=== PATIENT | female | born 1990 | race Two or more races ===

== ENCOUNTER → 2017-01-02 | Outpatient (REF) | payer OTHER ==
[~2017-01-02] MED LIST: MULTTAB20 PO
== END ==
LOC: M LAB REF 16:46
PROVIDERS: ATTEND Obstetrics & Gynecology
DX: O36.80X0 Pregnancy with inconclusive fetal viability, not applicable or unspecified (principal); Z3A.00 Weeks of gestation of pregnancy not specified

== ENCOUNTER → 2017-01-04 | Outpatient (REF) | payer OTHER ==
[2017-01-04 13:52] LABS: MEAN CORPUSCULAR HEMOGLOBIN 19.4 pg (27.0-33.0); MEAN CORPUSCULAR HGB CONC 29.7 g/dl (32.0-36.5); MEAN CORPUSCULAR VOLUME 65.4 fl (80.0-96.0); RED CELL DISTRIBUTION WIDTH 16.1 % (11.5-14.5); WHITE BLOOD COUNT 9.8 K/mm3 (4.0-10.0)
[2017-01-04 14:11] LABS: HCG, SERUM QUANTITATIVE 3087 MIU/ML
== END ==
LOC: M LAB REF 12:54
PROVIDERS: ATTEND Advanced Practice Midwife
DX: O36.80X0 Pregnancy with inconclusive fetal viability, not applicable or unspecified (principal); Z3A.00 Weeks of gestation of pregnancy not specified

== ENCOUNTER → 2017-01-09 | Outpatient (REF) | payer OTHER | LOC: M LAB REF 13:26 | PROVIDERS: ATTEND Advanced Practice Midwife | DX: Z32.01 Encounter for pregnancy test, result positive (principal) ==

== ENCOUNTER 2017-01-24 16:01 | Emergency (ER) | payer OTHER ==
[~2017-01-24] VITALS: Ht 149.9 cm; Wt 65.0 kg
[2017-01-24] MEDS ORDERED: MULTTAB20 PO (16:14)
[2017-01-24] MEDS ORDERED: NS 1,000 ML IV SCH (16:27)
[2017-01-24 16:47] LABS: BASO # 0.1 10^3/uL (0.0-0.2); BASO % 0.4 % (0.0-1.0); EOS # 0.6 10^3/uL (0.0-0.50); EOS % 3.9 % (0.0-3.0); IMMATURE GRANULOCYTE % 0.8 % (0-0); LYMPH # 2.2 10^3/uL (1.5-6.5); LYMPH % 14.2 % (24.0-44.0); MEAN CORPUSCULAR HEMOGLOBIN 19.6 pg (27.0-33.0); MEAN CORPUSCULAR HGB CONC 31.4 g/dl (32.0-36.5); MONO % 6.6 % (0.0-5.0); NEUTROPHILS # 11.3 10^3/uL (1.8-7.7); NEUTROPHILS % 74.1 % (36.0-66.0); PLATELET COUNT, AUTOMATED 360 10^3/uL (150-450); RED CELL DISTRIBUTION WIDTH 17.7 % (11.5-14.5); WHITE BLOOD COUNT 15.2 10^3/uL (4.0-10.0)
[2017-01-24 16:52] LABS: ADD MORPHOLOGY? YES; MEAN CORPUSCULAR VOLUME 62.3 fl (80.0-96.0)
[2017-01-24 17:20] LABS: HCG, SERUM QUANTITATIVE 2020 MIU/ML
[2017-01-24 17:25] LABS: ANISOCYTOSIS 2+; MICROCYTOSIS 2+
--- NOTE | 2017-01-24 17:51 | REP ---
PELVIC ULTRASOUND: Real-time sonographic evaluation of the pelvis performed. The uterus measures 7.4 x 3.9 x 5.6 cm. No sac is seen in the endometrial canal. Endometrial thickness is approximately 8 mm. The right ovary measures 6.2 x 4.6 x 4.6 cm. There is a complex right ovarian cyst 3.8 x 3.9 x 3.9 cm. Left ovary measures 3.0 x 2.9 x 2.9 and contains a complex cystic structure, 1.8 x 1.3 x 2.3 cm. There is no other evidence of adnexal mass or free fluid. There is no evidence of ovarian torsion with blood seen in each ovary with duplex Doppler evaluation, RI of the right ovary 0.53 and left ovary 0.60. The patient declined endovaginal ultrasound. IMPRESSION: No sac in the uterus. Complex cyst right ovary 3.9 cm in diameter. No other evidence of adnexal mass or free fluid. No evidence of ovarian torsion. I cannot exclude ectopic . Signed by Fabio Santiago MD 01/24/2017 07:17 P
[2017-01-24 18:45] LABS: ALBUMIN/GLOBULIN RATIO 1.08 (1.00-1.93); ALKALINE PHOSPHATASE 75 U/L (45-117); ALT/SGPT 34 U/L (12-78); ANION GAP 7 MEQ/L (8-16); AST/SGOT 21 U/L (15-37); BILIRUBIN,TOTAL 1.1 MG/DL (0.2-1.0); BLOOD UREA NITROGEN 11 MG/DL (7-18); CALCIUM LEVEL 8.9 MG/DL (8.5-10.1); CARBON DIOXIDE LEVEL 25 MEQ/L (21-32); CHLORIDE LEVEL 106 MEQ/L (98-107); CREATININE FOR GFR 0.64 MG/DL (0.55-1.02); GLOMERULAR FILTRATION RATE > 60.0 (>60); GLUCOSE, FASTING 81 MG/DL (70-105); POTASSIUM SERUM 3.6 MEQ/L (3.5-5.1); SODIUM LEVEL 138 MEQ/L (136-145); TOTAL PROTEIN 7.7 GM/DL (6.4-8.2)
--- NOTE | 2017-01-24 19:00 | REPUSA ---
CLINICAL HISTORY: Rule out ectopic. TECHNIQUE: Realtime sonographic images were obtained in multiple projections. COMMENTS: Limited study due to patient toleration and had to end exam early. No IUP seen and no obvious masses. Cannot rule out ectopic . The uterus measures 8.1 x 3.9 x 4.4 cm. The endometrium measure 0.58 cm. The right ovary measures 5.3 x 3.5 x 6.3 cm with a cyst measuring 3.9 x 3.7 x 4.8 cm. The left ovary measures 3.0 x 2.2 x 3.8 cm with a cyst measuring 1.8 x 1.1 x 1.1 cm. IMPRESSION: 1. Limited study due to patient toleration and had to end exam early. 2. No IUP seen and no obvious masses. Cannot rule out ectopic . 3. Bilateral ovarian cysts. Thank you for your kind referral of this patient. We appreciate the opportunity to participate in thi s patient's care.
[2017-01-24] MEDS ORDERED: METHOTREXATE 50MG/2ML VIAL (J9260 PER 50MG) IM SCH (20:00)
[2017-01-24 21:21] VITALS: BP 97/51
== END 2017-01-24 22:01 | disposition home or self-care (01) ==
LOC: M ED 16:01
DX: O00.90 Unspecified ectopic pregnancy without intrauterine pregnancy (principal); N83.201 Unspecified ovarian cyst, right side
CPT/HCPCS: 76801; 76817; 80053; 84702; 85025; 86850; 86900; 86901; 93976; 96372; 99283; J9260

== ENCOUNTER → 2017-01-28 | Outpatient (REF) | payer OTHER | LOC: M LAB REF 12:14 | PROVIDERS: ATTEND Advanced Practice Midwife | DX: O00.109 Unspecified tubal pregnancy without intrauterine pregnancy (principal) ==

== ENCOUNTER → 2017-02-06 | Outpatient (REF) | payer OTHER | LOC: M LAB REF 12:25 | PROVIDERS: ATTEND Advanced Practice Midwife | DX: O03.9 Complete or unspecified spontaneous abortion without complication (principal) ==

== ENCOUNTER → 2017-02-13 | Outpatient (REF) | payer OTHER | LOC: M LAB REF 13:00 | PROVIDERS: ATTEND Advanced Practice Midwife | DX: O03.9 Complete or unspecified spontaneous abortion without complication (principal) ==